=== PATIENT | female | born 1980 | race Caucasian/White ===

== ENCOUNTER 2018-03-28 17:12 | Inpatient (IN) | payer OTHER ==
[2018-03-28] MEDS ORDERED: NACL 0.9% 3 ML SYG IV (18:30)
[2018-03-28] MEDS ORDERED: HYDROCODONE/APAP (5/325) TAB PO (18:30)
[2018-03-28] MEDS ORDERED: ONDANSETRON 4 MG INJ IV (18:30)
[2018-03-28] MEDS ORDERED: NA PHOSPHATE/BIPHOS 133 ML ENEMA PR (19:00)
[2018-03-28] MEDS: POLYETHYLENE GLYCOL 17 GM PACKET PO (19:50)
[2018-03-28] MEDS: NICOTINE (14 MG/24 HR) PATCH TRANSDERM (19:50)
[2018-03-28] MEDS: ACETAMINOPHEN 325 MG TAB PO (19:50)
[2018-03-28] MEDS: NA PHOSPHATE/BIPHOS 133 ML ENEMA PR (19:51)
[2018-03-28] MEDS: SENNA TAB PO (20:15)
[2018-03-29 06:13] LABS: ADD MAN DIFF? NO
[2018-03-29 06:15] LABS: WHITE BLOOD COUNT 8.2 10^3/ul (4.8-10.8)
[2018-03-29 06:15] LABS: BASOPHIL # 0.1 10^3/ul (0.0-0.1); BASOPHILS % 0.7 % (0.0-2.0); EOSINOPHILS # 0.2 10^3/ul (0.0-0.5); EOSINOPHILS % 2.5 % (0.0-7.0); HEMATOCRIT 40.8 % (37.0-47.0); HEMOGLOBIN 13.6 g/dl (12.0-16.0); LYMPHOCYTES # 2.9 10^3/ul (0.8-2.9); LYMPHOCYTES % 35.3 % (15.0-51.0); MEAN CORPUSCULAR HEMOGLOBIN 30.4 pg (29.0-33.0); MEAN CORPUSCULAR HGB CONC 33.3 g/dl (32.0-37.0); MEAN CORPUSCULAR VOLUME 91.3 fl (82.0-101.0); MONOCYTE # 0.4 10^3/ul (0.3-0.9); MONOCYTES % 5.1 % (0.0-11.0); NEUTROPHIL # 4.6 10^3/ul (1.6-7.5); PLATELET COUNT 326 10^3/UL (140-415); RED BLOOD COUNT 4.47 10^6/ul (4.20-5.40); RED CELL DISTRIBUTION WIDTH 13.2 % (11.5-14.5)
[2018-03-29 06:58] LABS: ALANINE AMINOTRANSFERASE 18 IU/L (13-69); ALBUMIN 3.5 g/dl (3.3-4.9); ALBUMIN/GLOBULIN RATIO 1.29; ALKALINE PHOSPHATASE 48 IU/L (42-121); ANION GAP 12 (5-13); ASPARTATE AMINO TRANSFERASE 18 IU/L (15-46); BLOOD UREA NITROGEN 12 mg/dl (7-20); CALCIUM 8.7 mg/dl (8.4-10.2); CARBON DIOXIDE 26 mmol/L (21-31); CHLORIDE 103 mmol/L (97-110); CREATININE 0.68 mg/dl (0.44-1.00); Estimated GFR > 60 mL/min (>60); GLUCOSE 97 mg/dl (70-220); MAGNESIUM 1.9 mg/dl (1.7-2.5); PHOSPHORUS 3.8 mg/dl (2.5-4.9); POTASSIUM 4.2 mmol/L (3.5-5.1); SODIUM 141 mmol/L (135-144); TOTAL PROTEIN 6.2 g/dl (6.1-8.1)
[2018-03-29 07:15] LABS: HEPATITIS B SURFACE ANTIGEN NEGATIVE (NEGATIVE)
[2018-03-29 07:19] LABS: HEMOGLOBIN A1C 5.4 % (0-5.9)
[2018-03-29 07:30] LABS: HEPATITIS B SURFACE ANTIBODY NEGATIVE (NEGATIVE)
[2018-03-29 07:32] LABS: HEPATITIS C VIRAL ANTIBODY NEGATIVE (NEGATIVE); HIV 1&2 ANTIBODY NEGATIVE (NEGATIVE)
[2018-03-29] MEDS: NA PHOSPHATE/BIPHOS 133 ML ENEMA PR (08:44)
[2018-03-29] MEDS: SENNA TAB PO (08:44)
[2018-03-29] MEDS: POLYETHYLENE GLYCOL 17 GM PACKET PO (08:44)
[2018-03-29] MEDS: NICOTINE (14 MG/24 HR) PATCH TRANSDERM (08:44)
== END 2018-03-29 11:30 | disposition home or self-care (01) | DRG 392 ==
LOC: 5EC 17:12
DX: K59.00 Constipation, unspecified (principal); F17.200 Nicotine dependence, unspecified, uncomplicated; F15.10 Other stimulant abuse, uncomplicated
CPT/HCPCS: 80053; 83036; 83735; 84100; 85025; 86703; 86706; 86803; 87340